=== PATIENT | male | born 1995 | race Caucasian/White ===

== ENCOUNTER 2017-03-20 09:04 | Outpatient (CLI) | END 2017-03-20 16:40 | disposition home or self-care (01) ==

== ENCOUNTER 2017-04-25 12:56 | Emergency (ER) | END 2017-04-25 17:14 | disposition home or self-care (01) ==

== ENCOUNTER 2017-05-14 01:43 | Emergency (ER) | END 2017-05-14 04:04 | disposition home or self-care (01) ==

== ENCOUNTER 2017-06-05 15:24 | Emergency (ER) | END 2017-06-05 20:32 | disposition home or self-care (01) ==

== ENCOUNTER 2018-08-23 16:35 | Emergency (ER) | payer OTHER ==
[~2018-08-23] VITALS: Ht 165.1 cm; Wt 86.7 kg
[~2018-08-23 16:35] MED LIST: ALBU18HF INHALATION; ALBU8.5H8; CEPH-443 PO; FLOV110 INHALATION; HYDR-4011 PO; IBUP-1542 PO; RANI150T35 PO; SLSL1C50 TOP; SULF1TAB31 PO
[2018-08-23 16:42] VITALS: BP 133/78; PULSE 112; RESP 18; Ht 165.1 cm; Wt 86.7 kg
[2018-08-23] MEDS ORDERED: ERYT1OIN6 RIGHT EYE (17:51)
--- NOTE | 2018-08-23 17:56 | ERD ---
ER Documentation Chief Complaint Chief Complaint RIGHT EYE SWELLING, ITCHING X 3 DAYS. WOKE UP WITH IT. HPI 23-year-old male presents with complaint of right lower eyelid swelling and itching for last 3 days. States that he woke up with it. Denies any trauma to the eye. Denies any treatments. Denies any vision problems, fevers, eye pain, redness of the eye. ROS All systems reviewed and are negative except as per history of present illness. Medications Home Meds Active Scripts Erythromycin Base (Erythromycin) 1 Gm Oint...g., 1 APPLIC RIGHT EYE 6x day for hordeolum for 7 Days Prov:ALEJANDRO CONNER 08/23/18 Hydrocodone/Acetaminophen ([place] 5-325 Tablet) 1 Each Tablet, 1 EACH PO BID for 5 Days, #10 TAB Prov:JHON REED MD 06/05/17 Ranitidine Hcl* (Zantac*) 150 Mg Tablet, 150 MG PO BID PRN for EPIGASTRIC PAIN, #30 TAB Prov:JHON REED MD 06/05/17 Silver Sulfadiazine* (Thermazene*) 1%-50 gm Cream..g., 1 APPLIC TOP BID, #1 JAR Prov:JHON REED MD 06/05/17 Hydrocodone/Acetaminophen ([place] 5-325 Tablet) 1 Each Tablet, 1 TAB PO Q6H PRN for PAIN, #15 TAB Prov:REANNA QUINTANILLA C 05/14/17 Sulfamethoxazole/Trimethoprim* (Bactrim Ds* Tablet) 1 Each Tablet, 1 TAB PO BID, #14 TAB Prov:REANNA QUINTANILLA C 05/14/17 Hydrocodone/Acetaminophen ([place] 5-325 Tablet) 1 Each Tablet, 1 TAB PO Q6H PRN for PAIN, #7 TAB Prov:WADE EDWARDS PA-C 04/25/17 Ibuprofen* (Motrin*) 600 Mg Tab, 600 MG PO Q6, #30 TAB Prov:WADE EDWARDS PA-C 04/25/17 Cephalexin* (Keflex*) 500 Mg Capsule, 500 MG PO QID for 7 Days, CAP Prov:WADE EDWARDS PA-C 04/25/17 Reported Medications Albuterol Sulfate* (Ventolin HFA*) 18 Gm Hfa.aer.ad, 2 PUFF INHALATION Q4H, #1 INHALER 03/20/17 Fluticasone Propionate* (Flovent* HFA 110) 12 Gm Inha, 1 PUFF INHALATION BID for SHORTNESS OF BREATH, #1 INHALER 03/20/17 Albuterol Sulfate* (Proair HFA*) 8.5 Gm Hfa.aer.ad 06/29/09 Allergies Allergies: Coded Allergies: shellfish derived (Verified Allergy, Intermediate, 08/23/18) shrimp (Verified Allergy, Unknown, 08/23/18) PMhx/Soc Anesthesia Reaction: No Hx Neurological Disorder: No Hx Respiratory Disorders: Yes (athsma) Hx Cardiac Disorders: No Hx Psychiatric Problems: No Hx Miscellaneous Medical Probl: No Hx Alcohol Use: No Hx Substance Use: No Hx Tobacco Use: No Smoking Status: Never smoker FmHx Family History: No diabetes, No coronary disease, No other Physical Exam Vitals Vital Signs Date Temp Pulse Resp B/P (MAP) Pulse Ox O2 O2 Flow FiO2 Time Delivery Rate 08/23/18 99.0 112 18 133/78 100 16:42 (96) Physical Exam Const: No acute distress Head: Atraumatic Eyes: Normal Conjunctiva. EOMs intact. PERRLA. No pain during EOM movements. Lower right eyelid has a edematous mass approximately half centimeter consistent with hordeolum. Nonfluctuant or erythematous with no discharge noted. No tenderness to palpation. ENT: Normal External Ears, Nose and Mouth. Neck: Full range of motion. No meningismus. Resp: Clear to auscultation bilaterally Cardio: Regular rate and rhythm, no murmurs Abd: Soft, non tender, non distended. Normal bowel sounds Skin: No petechiae or rashes Back: No midline or flank tenderness Ext: No cyanosis, or edema Neur: Awake and alert Psych: Normal Mood and Affect Procedures/MDM MDM: Patient presents consistent with external hordeolum. Patient advised to use warm compresses and use erythromycin ointment. I have low suspicion for acute space infection, periorbital cellulitis, orbital cellulitis, or any emergent condition. Patient discharged with strict ER precautions. Patient advised to follow up with PMD. All questions answered at discharge. Departure Diagnosis: Primary Impression: Hordeolum externum Laterality: right Eyelid: lower Qualified Codes: H00.012 - Hordeolum externum right lower eyelid Condition: Stable Patient Instructions: Sty Additional Instructions: FOLLOW UP WITH YOUR PRIMARY CARE PHYSICIAN TOMORROW.Return to this facility if you are not improving as expected. ALEJANDRO CONNER August 23, 2018 17:56
== END 2018-08-23 18:07 | disposition home or self-care (01) ==
LOC: FTE 16:35
DX: H00.012 Hordeolum externum right lower eyelid (principal); J45.909 Unspecified asthma, uncomplicated
CPT/HCPCS: 99283

== ENCOUNTER 2018-08-28 22:47 | Emergency (ER) | payer OTHER ==
[~2018-08-28] VITALS: Ht 165.1 cm; Wt 86.2 kg
[~2018-08-28 22:47] MED LIST changes: +ERYT1OIN6 RIGHT EYE
[2018-08-28 22:49] VITALS: Ht 165.1 cm; Wt 86.2 kg
[2018-08-29] MEDS ORDERED: HYDR-3029 PO (03:20)
[2018-08-29] MEDS ORDERED: NAPR-985 PO (03:20)
[2018-08-29 03:30] VITALS: BP 127/81; PULSE 97; RESP 18
--- NOTE | 2018-08-29 05:35 | ERD ---
ER Documentation Chief Complaint Chief Complaint CP X'S 1 HOUR HPI 23-year-old male presenting with chest pain x1 hour. Patient states that he was at work he has pain with deep breaths. Started 2 days never had a before. He is under more stress but is not sure if that is the cause. He denies any coughing. Denies fevers. Medical history is corticated nitrous oxide use. Patient states he last used it 2 nights ago. NKDA. Surgical history is hernia repair. Social history denies ROS All systems reviewed and are negative except as per history of present illness. Medications Home Meds Active Scripts Hydroxyzine Hcl* (Hydroxyzine Hcl*) 10 Mg Tablet, 10 MG PO Q6H PRN for ANXIETY, #30 TAB Prov:BARTOLO RAMIREZ PA-C 08/29/18 Naproxen* (Naprosyn*) 500 Mg Tablet, 500 MG PO BID PRN for PAIN AND/OR INFLAMMATION, #30 TAB Prov:BARTOLO RAMIREZ PA-C 08/29/18 Erythromycin Base (Erythromycin) 1 Gm Oint...g., 1 APPLIC RIGHT EYE 6x day for hordeolum for 7 Days Prov:ALEJANDRO CONNER 08/23/18 Hydrocodone/Acetaminophen ([place] 5-325 Tablet) 1 Each Tablet, 1 EACH PO BID for 5 Days, #10 TAB Prov:JHON REED MD 06/05/17 Ranitidine Hcl* (Zantac*) 150 Mg Tablet, 150 MG PO BID PRN for EPIGASTRIC PAIN, #30 TAB Prov:JHON REED MD 06/05/17 Silver Sulfadiazine* (Thermazene*) 1%-50 gm Cream..g., 1 APPLIC TOP BID, #1 JAR Prov:JHON REED MD 06/05/17 Hydrocodone/Acetaminophen ([place] 5-325 Tablet) 1 Each Tablet, 1 TAB PO Q6H PRN for PAIN, #15 TAB Prov:REANNA QUINTANILLA 05/14/17 Sulfamethoxazole/Trimethoprim* (Bactrim Ds* Tablet) 1 Each Tablet, 1 TAB PO BID, #14 TAB Prov:REANNA QUINTANILLA 05/14/17 Hydrocodone/Acetaminophen ([place] 5-325 Tablet) 1 Each Tablet, 1 TAB PO Q6H PRN for PAIN, #7 TAB Prov:WADE EDWARDSPaul LIRA 04/25/17 Ibuprofen* (Motrin*) 600 Mg Tab, 600 MG PO Q6, #30 TAB Prov:WADE EDWARDSPaul LIRA 04/25/17 Cephalexin* (Keflex*) 500 Mg Capsule, 500 MG PO QID for 7 Days, CAP Prov:WADE EDWARDSPaul LIRA 04/25/17 Reported Medications Albuterol Sulfate* (Ventolin HFA*) 18 Gm Hfa.aer.ad, 2 PUFF INHALATION Q4H, #1 INHALER 03/20/17 Fluticasone Propionate* (Flovent* HFA 110) 12 Gm Inha, 1 PUFF INHALATION BID for SHORTNESS OF BREATH, #1 INHALER 03/20/17 Albuterol Sulfate* (Proair HFA*) 8.5 Gm Hfa.aer.ad 06/29/09 Allergies Allergies: Coded Allergies: shellfish derived (Verified Allergy, Intermediate, 08/23/18) shrimp (Verified Allergy, Unknown, 08/23/18) PMhx/Soc Anesthesia Reaction: No Hx Neurological Disorder: No Hx Respiratory Disorders: Yes (athsma) Hx Cardiac Disorders: No Hx Psychiatric Problems: No Hx Miscellaneous Medical Probl: No Hx Alcohol Use: No Hx Substance Use: No Hx Tobacco Use: No Smoking Status: Never smoker FmHx Family History: No diabetes, No coronary disease, No other Physical Exam Vitals Vital Signs Date Temp Pulse Resp B/P (MAP) Pulse Ox O2 O2 Flow FiO2 Time Delivery Rate 08/29/18 98.0 97 18 127/81 99 Room Air 03:30 (96) 08/28/18 97.8 108 20 139/87 96 22:49 (104) Physical Exam GENERAL: The patient is well-appearing, well-nourished, in no acute distress HEENT: Atraumatic. Conjunctivae are pink. Pupils equal, round, and reactive to light. There is no scleral icterus. Tympanic membranes clear bilaterally. Oropharynx clear. NECK: C-spine is soft and supple. There is no meningismus. There is no cervical lymphadenopathy. CHEST: Clear to auscultation bilaterally. There are no rales, wheezes or rhonchi. HEART: Regular rate and rhythm. No murmurs, clicks, rubs or gallops. Result Diagram: 08/29/1814008/29/18140 Results 24 hrs Laboratory Tests Test 08/29/18 01:41 White Blood Count 10.5 10^3/ul Red Blood Count 4.74 10^6/ul Hemoglobin 15.0 g/dl Hematocrit 44.2 % Mean Corpuscular Volume 93.2 fl Mean Corpuscular Hemoglobin 31.6 pg Mean Corpuscular Hemoglobin Concent 33.9 g/dl Red Cell Distribution Width 12.4 % Platelet Count 356 10^3/UL Mean Platelet Volume 9.2 fl Immature Granulocytes % 0.200 % Neutrophils % 50.8 % Lymphocytes % 37.2 % Monocytes % 7.3 % Eosinophils % 3.9 % Basophils % 0.6 % Nucleated Red Blood Cells % 0.0 /100WBC Immature Granulocytes # 0.020 10^3/ul Neutrophils # 5.3 10^3/ul Lymphocytes # 3.9 10^3/ul Monocytes # 0.8 10^3/ul Eosinophils # 0.4 10^3/ul Basophils # 0.1 10^3/ul Nucleated Red Blood Cells # 0.0 10^3/ul D-Dimer 220.00 ng/ml D-Dimer Comment Sodium Level 145 mmol/L Potassium Level 4.3 mmol/L Chloride Level 109 mmol/L Carbon Dioxide Level 27 mmol/L Anion Gap 9 Blood Urea Nitrogen 21 mg/dl Creatinine 0.87 mg/dl Est Glomerular Filtrat Rate mL/min > 60 mL/min Glucose Level 95 mg/dl Calcium Level 9.3 mg/dl Total Bilirubin 0.4 mg/dl Direct Bilirubin 0.00 mg/dl Indirect Bilirubin 0.4 mg/dl Aspartate Amino Transf (AST/SGOT) 46 IU/L Alanine Aminotransferase (ALT/SGPT) 47 IU/L Alkaline Phosphatase 116 IU/L Troponin I < 0.012 ng/ml Total Protein 8.3 g/dl Albumin 4.6 g/dl Globulin 3.70 g/dl Albumin/Globulin Ratio 1.24 Procedures/MDM DIAGNOSTIC IMAGING REPORT Patient: KATHERINE BOO : 1995 Age: 23 Sex: M MR #: [id number] DOS: 08/29/18 0131 Ordering MD: GALE RAMIREZ PA-C Location: [facility] Room/Bed: PROCEDURE: XR Chest. CLINICAL INDICATION: Chest pain TECHNIQUE: AP chest was obtained COMPARISON: None. FINDINGS: Cardiomediastinal silhouette is normal. Pulmonary vasculature is normal. Lungs and costophrenic angles are clear. Bones soft tissues are unremarkable. IMPRESSION: No evidence of acute cardiopulmonary disease. EKG: Rate/Rhythm: 107 bpm normal Sinus Rhythm QRS, ST, T-waves: No changes consistent w/ acute ischemia Impression: No evidence of ischemia or arrhythmia MDM: 23-year-old male presenting with chest pain. I have low suspicion for cardiac or pulmonary emergency. I have low suspicion for PE. Patient is discharged with supportive medications and told to follow-up with primary care within 1 to 2 days for close evaluation. Patient is told symptoms change or worsen to return immediately to the ER. All questions answered at discharge Departure Diagnosis: Primary Impression: Chest pain Condition: Stable Patient Instructions: Chest Pain, Uncertain Cause Referrals: SAMEERA SHABAZZ MD (PCP) Additional Instructions: FOLLOW UP WITH YOUR PRIMARY CARE PHYSICIAN TOMORROW.Return to this facility if you are not improving as expected. BARTOLO RAMIREZ PA-C August 29, 2018 05:35
== END 2018-08-29 03:31 | disposition home or self-care (01) ==
LOC: FTE 22:47
DX: R07.9 Chest pain, unspecified (principal); J45.909 Unspecified asthma, uncomplicated
CPT/HCPCS: 36415; 71045; 80053; 84484; 85025; 85378; 93005; Z7502

== ENCOUNTER 2018-09-16 09:30 | Emergency (ER) | payer OTHER ==
[~2018-09-16] VITALS: Ht 165.1 cm; Wt 85.9 kg
[~2018-09-16 09:30] MED LIST changes: +HYDR-3029 PO; +NAPR-985 PO
[2018-09-16 09:33] VITALS: BP 131/65; PULSE 74; RESP 18; Ht 165.1 cm; Wt 85.9 kg
[2018-09-16] MEDS ORDERED: CEPH-443 PO (09:52)
[2018-09-16] MEDS ORDERED: HC30CR25 TOP (09:53)
[2018-09-16] MEDS ORDERED: TERB30CR22 TOP (09:59)
--- NOTE | 2018-09-16 10:05 | ERD ---
ER Documentation Chief Complaint Chief Complaint rash x 2 days HPI 23-year-old male presents with complaint of rash in his left armpit for the past 2 days. In addition he states that he has a rash on his bales which is been on and off for several months. States that the rash itches denies any pain, fevers, chills, edema. Denies any treatments. ROS All systems reviewed and are negative except as per history of present illness. Medications Home Meds Active Scripts Terbinafine Hcl* (Terbinafine Hcl*) 1% - 30 Gm Cream..g., 1 APPLIC TOP DAILY, #1 TUB Prov:ALEJANDRO CONNER 09/16/18 Hydrocortisone* Topical (Hydrocortisone* Topical) 2.5%-28.3 Gm Cream..g., 1 APPLIC TOP BID, #1 TUB Prov:ALEJANDRO CONNER 09/16/18 Hydroxyzine Hcl* (Hydroxyzine Hcl*) 10 Mg Tablet, 10 MG PO Q6H PRN for ANXIETY, #30 TAB Prov:BARTOLO RAMIREZ PA-C 08/29/18 Naproxen* (Naprosyn*) 500 Mg Tablet, 500 MG PO BID PRN for PAIN AND/OR INFLAMMATION, #30 TAB Prov:BARTOLO RAMIREZ PA-C 08/29/18 Erythromycin Base (Erythromycin) 1 Gm Oint...g., 1 APPLIC RIGHT EYE 6x day for hordeolum for 7 Days Prov:ALEJANDRO CONNER 08/23/18 Hydrocodone/Acetaminophen ([place] 5-325 Tablet) 1 Each Tablet, 1 EACH PO BID for 5 Days, #10 TAB Prov:JHON REED MD 06/05/17 Ranitidine Hcl* (Zantac*) 150 Mg Tablet, 150 MG PO BID PRN for EPIGASTRIC PAIN, #30 TAB Prov:JHON REED MD 06/05/17 Silver Sulfadiazine* (Thermazene*) 1%-50 gm Cream..g., 1 APPLIC TOP BID, #1 JAR Prov:JHON REED MD 06/05/17 Hydrocodone/Acetaminophen ([place] 5-325 Tablet) 1 Each Tablet, 1 TAB PO Q6H PRN for PAIN, #15 TAB Prov:REANNA QUINTANILLA 05/14/17 Sulfamethoxazole/Trimethoprim* (Bactrim Ds* Tablet) 1 Each Tablet, 1 TAB PO BID, #14 TAB Prov:REANNA QUINTANILLA 05/14/17 Hydrocodone/Acetaminophen ([place] 5-325 Tablet) 1 Each Tablet, 1 TAB PO Q6H PRN for PAIN, #7 TAB Prov:WADE EDWARDSC 04/25/17 Ibuprofen* (Motrin*) 600 Mg Tab, 600 MG PO Q6, #30 TAB Prov:WADE EDWARDSC 04/25/17 Cephalexin* (Keflex*) 500 Mg Capsule, 500 MG PO QID for 7 Days, CAP Prov:WADE EDWARDSC 04/25/17 Reported Medications Albuterol Sulfate* (Ventolin HFA*) 18 Gm Hfa.aer.ad, 2 PUFF INHALATION Q4H, #1 INHALER 03/20/17 Fluticasone Propionate* (Flovent* HFA 110) 12 Gm Inha, 1 PUFF INHALATION BID for SHORTNESS OF BREATH, #1 INHALER 03/20/17 Albuterol Sulfate* (Proair HFA*) 8.5 Gm Hfa.aer.ad 06/29/09 Allergies Allergies: Coded Allergies: shellfish derived (Verified Allergy, Intermediate, 08/23/18) shrimp (Verified Allergy, Unknown, 08/23/18) PMhx/Soc Anesthesia Reaction: No Hx Neurological Disorder: No Hx Respiratory Disorders: Yes (athsma) Hx Cardiac Disorders: No Hx Psychiatric Problems: No Hx Miscellaneous Medical Probl: No Hx Alcohol Use: No Hx Substance Use: No Hx Tobacco Use: No FmHx Family History: No diabetes, No coronary disease, No other Physical Exam Vitals Vital Signs Date Temp Pulse Resp B/P (MAP) Pulse Ox O2 O2 Flow FiO2 Time Delivery Rate 09/16/18 98.3 74 18 131/65 97 09:33 (87) Physical Exam Const: No acute distress Head: Atraumatic Eyes: Normal Conjunctiva ENT: Normal External Ears, Nose and Mouth. Neck: Full range of motion. No meningismus. Resp: Clear to auscultation bilaterally Cardio: Regular rate and rhythm, no murmurs Abd: Soft, non tender, non distended. Normal bowel sounds Skin: Beefy erythematous lesion noted to the right armpit with erythematous pustular satellite lesions extending outwards across the upper arm and upper chest area. There is no lymphatic streaking noted. Is nontender to palpation. No masses or signs of infection noted. In addition there is a excoriated scaly plaque noted over the patient's left bales approximately 2 cm. Back: No midline or flank tenderness Ext: No cyanosis, or edema Neur: Awake and alert Psych: Normal Mood and Affect Procedures/MDM MDM: Patient's presentation is consistent with tinea corporis of the axilla with satellite lesions. Patient given terbinafine cream. Patient also seems to have eczema on the bales area for which she is prescribed hydrocortisone cream. Low suspicion for Kawasaki disease, scarlet fever, necrotizing fasciitis, sepsis, gangrene, Michael-Pako syndrome, toxic epidural necrolysis, abscess, cellulitis, anaphylaxis, allergic reaction. At this time, patient is stable for discharge and outpatient management. I have instructed the patient to follow-up with his/her primary care physician in 1-2 days. I have discussed with the patient the possibility of needing to see a specialist for further workup and imaging studies if symptoms persist. I have instructed the patient to promptly return to the ER for any new or worsening symptoms including but not limited to increased pain, fever, nausea, vomiting, weakness or LOC. The patient and/or family expressed understanding of and agreement with this plan. All questions were answered. Home care instructions were provided. DISCLAIMER: Inadvertent spelling and grammatical errors are likely due to EHR/dictation software use and do not reflect on the overall quality of patient care. Also, josemanuel chun note that the electronic time recorded on this note does not necessarily reflect the actual time of the patient encounter. Departure Diagnosis: Primary Impression: Tinea corporis Additional Impression: Eczema Eczema type: unspecified Qualified Codes: L30.9 - Dermatitis, unspecified Condition: Stable Patient Instructions: Tinea Corporis, Atopic Dermatitis (Eczema) Additional Instructions: FOLLOW UP WITH YOUR PRIMARY CARE PHYSICIAN TOMORROW.Return to this facility if you are not improving as expected. ALEJANDRO CONNER Sep 16, 2018 10:05
== END 2018-09-16 10:20 | disposition home or self-care (01) ==
LOC: FTE 09:30
DX: B35.4 Tinea corporis (principal); L30.9 Dermatitis, unspecified; J45.909 Unspecified asthma, uncomplicated
CPT/HCPCS: 99282

== ENCOUNTER 2018-10-21 09:48 | Emergency (ER) | payer OTHER ==
[~2018-10-21] VITALS: Ht 165.1 cm; Wt 97.9 kg
[~2018-10-21 09:48] MED LIST changes: +FAMO-96 PO; +HC30CR25 TOP; +TERB30CR22 TOP
[2018-10-21 09:52] VITALS: BP 118/61; PULSE 86; RESP 16; Ht 165.1 cm; Wt 97.9 kg
[2018-10-21] MEDS ORDERED: LIDOCAINE/MYLANTA 40 ML BTL PO STA (10:33)
[2018-10-21] MEDS ORDERED: BELLADONNA/PHENOBARBITAL TAB PO STA (10:33)
[2018-10-21] MEDS ORDERED: FAMOTIDINE 20 MG TAB PO STA (10:33)
--- NOTE | 2018-10-21 10:41 | ERD ---
ER Documentation Chief Complaint Chief Complaint mid abd pain x 1 day. HPI 23-year-old male presents with complaint of upper left abdominal pain for the past 2 years. States that he is currently awaiting endoscopy as they think he m ight have an ulcer. Patient states that the pain is intermittent. States that he takes omeprazole when he takes that the pain is relieved. He has not taken in 1 week because he says he ran out. Denies any nausea, vomiting, diarrhea, bloody stools, fevers, chills, dysuria, hematuria. ROS All systems reviewed and are negative except as per history of present illness. Medications Home Meds Active Scripts Famotidine* (Pepcid*) 20 Mg Tablet, 20 MG PO BID for 14 Days, TAB Prov:ALEJANDRO CONNER 10/21/18 Terbinafine Hcl* (Terbinafine Hcl*) 1% - 30 Gm Cream..g., 1 APPLIC TOP DAILY, #1 TUB Prov:ALEJANDRO CONNER 09/16/18 Hydrocortisone* Topical (Hydrocortisone* Topical) 2.5%-28.3 Gm Cream..g., 1 A PPLIC TOP BID, #1 TUB Prov:ALEJANDRO CONNER 09/16/18 Hydroxyzine Hcl* (Hydroxyzine Hcl*) 10 Mg Tablet, 10 MG PO Q6H PRN for ANXIETY, #30 TAB Prov:BARTOLO RAMIREZ PA-C 08/29/18 Naproxen* (Naprosyn*) 500 Mg Tablet, 500 MG PO BID PRN for PAIN AND/OR INF LAMMATION, #30 TAB Prov:BARTOLO RAMIREZ PA-C 08/29/18 Erythromycin Base (Erythromycin) 1 Gm Oint...g., 1 APPLIC RIGHT EYE 6x day for hordeolum for 7 Days Prov:ALEJANDRO CONNER 08/23/18 Hydrocodone/Acetaminophen ([place] 5-325 Tablet) 1 Each Tablet, 1 EACH PO BID for 5 Days, #10 TAB Prov:JHON REED MD 06/05/17 Ranitidine Hcl* (Zantac*) 150 Mg Tablet, 150 MG PO BID PRN for EPIGASTRIC PAIN, #30 TAB Prov:JHON REED MD 06/05/17 Silver Sulfadiazine* (Thermazene*) 1%-50 gm Cream..g., 1 APPLIC TOP BID, #1 JAR Prov:JHON REED MD 06/05/17 Hydrocodone/Acetaminophen ([place] 5-325 Tablet) 1 Each Tablet, 1 TAB PO Q6H PRN for PAIN, #15 TAB Prov:REANNA QUINTANILLA 05/14/17 Sulfamethoxazole/Trimethoprim* (Bactrim Ds* Tablet) 1 Each Tablet, 1 TAB PO BID, #14 TAB Prov:REANNA QUINTANILLA 05/14/17 Hydrocodone/Acetaminophen ([place] 5-325 Tablet) 1 Each Tablet, 1 TAB PO Q6H PRN for PAIN, #7 TAB Prov:WADE EDWARDS PA-C 04/25/17 Ibuprofen* (Motrin*) 600 Mg Tab, 600 MG PO Q6, #30 TAB Prov:WADE EDWARDS PA-C 04/25/17 Cephalexin* (Keflex*) 500 Mg Capsule, 500 MG PO QID for 7 Days, CAP Prov:WADE EDWARDS PA-C 04/25/17 Reported Medications Albuterol Sulfate* (Ventolin HFA*) 18 Gm Hfa.aer.ad, 2 PUFF INHALATION Q4H, #1 INHALER 03/20/17 Fluticasone Propionate* (Flovent* HFA 110) 12 Gm Inha, 1 PUFF INHALATION BID for SHORTNESS OF BREATH, #1 INHALER 03/20/17 Albuterol Sulfate* (Proair HFA*) 8.5 Gm Hfa.aer.ad 06/29/09 Allergies Allergies: Coded Allergies: shellfish derived (Verified Allergy, Intermediate, 08/23/18) shrimp (Verified Allergy, Unknown, 08/23/18) PMhx/Soc Anesthesia Reaction: No Hx Neurological Disorder: No Hx Respiratory Disorders: Yes (athsma) Hx Cardiac Disorders: No Hx Psychiatric Problems: No Hx Miscellaneous Medical Probl: No Hx Alcohol Use: No Hx Substance Use: No Hx Tobacco Use: No Smoking Status: Never smoker FmHx Family History: No diabetes, No coronary disease, No other Physical Exam Vitals Vital Signs Date Temp Pulse Resp B/P (MAP) Pulse Ox O2 O2 Flow FiO2 Time Delivery Rate 10/21/18 97.9 86 16 118/61 99 09:52 (80) Physical Exam Const: No acute distress Head: Atraumatic Eyes: Normal Conjunctiva ENT: Normal External Ears, Nose and Mouth. Neck: Full range of motion. No meningismus. Resp: Clear to auscultation bilaterally Cardio: Regular rate and rhythm, no murmurs Abd: Soft, non tender, non distended. Normal bowel sounds. Noted negative McBurney's. Negative Marshall's. Patient able to jump up and down exam. Skin: No petechiae or rashes Back: No midline or flank tenderness Ext: No cyanosis, or edema Neur: Awake and alert Psych: Normal Mood and Affect Result Diagram: 10/21/18 1038 10/21/18 1038 Results 24 hrs Laboratory Tests Test 10/21/18 10:38 White Blood Count 8.1 10^3/ul Red Blood Count 4.94 10^6/ul Hemoglobin 15.5 g/dl Hematocrit 45.9 % Mean Corpuscular Volume 92.9 fl Mean Corpuscular Hemoglobin 31.4 pg Mean Corpuscular Hemoglobin Concent 33.8 g/dl Red Cell Distribution Width 12.7 % Platelet Count 356 10^3/UL Mean Platelet Volume 9.3 fl Immature Granulocytes % 0.400 % Neutrophils % 55.8 % Lymphocytes % 32.4 % Monocytes % 7.0 % Eosinophils % 3.8 % Basophils % 0.6 % Nucleated Red Blood Cells % 0.0 /100WBC Immature Granulocytes # 0.030 10^3/ul Neutrophils # 4.5 10^3/ul Lymphocytes # 2.6 10^3/ul Monocytes # 0.6 10^3/ul Eosinophils # 0.3 10^3/ul Basophils # 0.1 10^3/ul Nucleated Red Blood Cells # 0.0 10^3/ul Sodium Level 142 mmol/L Potassium Level 4.3 mmol/L Chloride Level 106 mmol/L Carbon Dioxide Level 26 mmol/L Anion Gap 10 Blood Urea Nitrogen 16 mg/dl Creatinine 0.78 mg/dl Est Glomerular Filtrat Rate mL/min > 60 mL/min Glucose Level 100 mg/dl Calcium Level 9.7 mg/dl Total Bilirubin 0.5 mg/dl Direct Bilirubin 0.00 mg/dl Indirect Bilirubin 0.5 mg/dl Aspartate Amino Transf (AST/SGOT) 265 IU/L Alanine Aminotransferase (ALT/SGPT) 116 IU/L Alkaline Phosphatase 99 IU/L Total Protein 8.3 g/dl Albumin 4.5 g/dl Globulin 3.80 g/dl Albumin/Globulin Ratio 1.18 Lipase 25 U/L Current Medications Medications Dose Sig/Marcus Start Time Status Last (Trade) Ordered Route PRN Stop Time Admin Dose Reason Admin Famotidine 20 mg ONCE STAT 10/21/18 DC 10/21/18 (Pepcid) PO 10:33 10:51 10/21/18 10:35 40 ml ONCE STAT 10/21/18 DC 10/21/18 Miscellaneous PO 10:33 10:50 Medication 10/21/18 10:35 (Gi Cocktail (2)) [place]/ 2 tab ONCE STAT 10/21/18 DC 10/21/18 Phenobarbital PO 10:33 10:51 () 10/21/18 10:35 Procedures/MDM MDM: Patient is a chronic condition with no evidence of real acuity therefore I do not think that imaging was warranted at this time. In addition patient's physical exam was benign and patient's vitals are within normal limits. Basic lab work was done to check lipase and electrolytes and all results within normal limits. Patient most likely has gastritis versus ulcer. Patient states that he is currently awaiting an endoscopy and I advised him to follow-up with that. Patient given Rx for Pepcid. Patient given GI cocktail the ER and stated that his symptoms resolved. I have low suspicion for acute coronary syndrome, AAA, mesenteric ischemia, lower lobe pneumonia, DKA, bowel perforation, cholecystitis, choledocholithiasis, ascending cholangitis, hepatic abscess, pancreatitis, PUD, splenic rupture, diverticulitis, pyelonephritis, nephrolithiasis, appendicitis, [testicular torsion], . At this time, patient is stable for discharge and outpatient management. I have instructed the patient to follow-up with his/her primary care physician in 1-2 days. I have discussed with the patient the possibility of needing to see a spe cialist for further workup and imaging studies if symptoms persist. I have instructed the patient to promptly return to the ER for any new or worsening symptoms including but not limited to increased pain, fever, nausea, vomiting, weakness or LOC. The patient and/or family expressed understanding of and agreement with this plan. All questions were answered. Home care instructions were provided. DISCLAIMER: Inadvertent spelling and grammatical errors are likely due to EHR/dictation software use and do not reflect on the overall quality of patient care. Also, please note that the electronic time recorded on this note does not necessarily reflect the actual time of the patient encounter. Departure Diagnosis: Primary Impression: Gastritis Condition: Stable ALEJANDRO CONNER Oct 21, 2018 10:41
== END 2018-10-21 11:49 | disposition home or self-care (01) ==
LOC: FTE 09:48
DX: K29.70 Gastritis, unspecified, without bleeding (principal)
CPT/HCPCS: 80053; 83690; 85025; Z7610; 99283

== ENCOUNTER 2018-12-14 18:01 | Emergency (ER) | payer OTHER ==
[~2018-12-14] VITALS: Wt 90.0 kg
[~2018-12-14 18:01] MED LIST changes: +ACET325T33 PO; +HYDR-843 PO; +RANI-535 PO; -RANI150T35 PO
[2018-12-14 18:03] VITALS: BP 141/62; PULSE 97; RESP 18
== END 2018-12-14 19:02 | disposition home or self-care (01) ==
LOC: FTE 18:01 → E/R 19:02
DX: J02.9 Acute pharyngitis, unspecified (principal); J45.909 Unspecified asthma, uncomplicated; R45.82 Worries
CPT/HCPCS: 99283